=== PATIENT | male | born 1985 | race Caucasian/White ===

== ENCOUNTER 2020-06-12 13:18 | Emergency (ER) | payer OTHER ==
[~2020-06-12] VITALS: Ht 162.6 cm; Wt 59.0 kg
[2020-06-12 13:56] VITALS: BP 110/60
--- NOTE | 2020-06-12 13:57 | NUR ---
came to er complaits infected right index finger x 2 days
[2020-06-12] MEDS ORDERED: CEPHALEXIN500 MG ORAL (14:25)
--- NOTE | 2020-06-12 14:31 | Emergency Room Report ---
History of Present Illness General Chief Complaint: Skin Rash/Abscess Source: Patient Present Illness HPI Disclaimer: Please note that this report is being documented using DRAGON technology. This can lead to erroneous entry secondary to incorrect interpretation by the dictating instrument. HPI: 35-year-old [id number] male presents with fingertip pain and swelling. 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 He does not recall a specific injury. He does sometimes pick at the skin around the fingernails. He reports pain swelling and now discoloration around the fingernail of the right index finger over the radial side. Full range of motion of the hand otherwise. Denies numbness or tingling. Reports pulsating sensation. Has not taken any medications prior to arrival. PMH: Reviewed PSH: Thyroid surgery Allergies: Reviewed Social Hx: Reviewed Allergies: Coded Allergies: No Known Allergies (Unverified , 06/12/20) COVID-19 Screening Contact w/high risk pt: No Experienced COVID-19 symptoms?: No COVID-19 Testing performed [employer]: No Nursing Documentation-PMH Past Medical History: No Stated History Review of Systems All Other Systems: negative except mentioned in HPI Physical Exam Vital Signs Date Time Temp Pulse Resp B/P (MAP) Pulse Ox O2 Delivery O2 Flow Rate FiO2 06/12/20 13:47 97.9 72 16 110/60 (77) 98 Room Air General: Awake and alert, no acute distress HEENT: NC/AT. EOMI. Resp: Normal work of breathing Skin: Intact. Edema and erythema around the fingernail base of the right index finger with overlying pustule. No active drainage or bleeding. MSK: Normal tone and bulk. Moving all extremities. No obvious deformity. Neuro: Awake and alert. Mentating appropriately Procedures Additional Procedure Procedure Narrative Paronychial drainage Area cleaned with chlorhexidine. 11 blade inserted above the nailbed into the eponychial fold. Purulent material expressed an additional pressure applied to express additional material. Irrigated under continuous water. No blood loss. No complications. Patient was neurologically intact at the start and end of this procedure. Medical Decision Making Diagnostic Impression: Primary Impression: Paronychia ER Course 35-year-old male presents for evaluation of fingertip pain and swelling. Exam consistent with paronychia. Drained at bedside by me by inserting a 11 blade flat against the fingernail extending across the pustular region. Expressed moderate amount of pus. Irrigated under continuous water and cleaned. Patient will be started on antibiotics because he has surrounding cellulitis around the digit as well. No felon identified. Patient denies impact injury or crush injury. Do not believe he requires x-ray at this time. Tetanus updated. Stable for outpatient follow-up. Instructed to return with new or worsening symptoms. Last Vital Signs Date Time Temp Pulse Resp B/P (MAP) Pulse Ox O2 Delivery O2 Flow Rate FiO2 06/12/20 13:56 97.9 16 110/60 98 Room Air 06/12/20 13:47 72 Disposition: HOME, SELF-CARE Condition: Stable Scripts Cephalexin* (KEFLEX*) 500 Mg Capsule 500 MG ORAL EVERY 12 HOURS, #14 CAP 0 Refills Prov: Kali Smith MD 06/12/20 Referrals: [facility] Departure Forms: Return to Work Return to Work in (Days): 2 Other Restrictions: Do not immerse hand in any volatile liquids, oils or other caustic chemical Patient Instructions: Paronychia Additional Instructions: Please follow-up with your primary care doctor in the next 1 to 3 days to discuss this emergency department visit and for reevaluation. If you have any new or worsening symptoms please return to the emergency department for reevaluation. Please note that this report is being documented using DRAGON technology. This can lead to erroneous entry secondary to incorrect interpretation by the dictating instrument. Kali Smith MD Jun 12, 2020 14:31
[2020-06-12] MEDS ORDERED: Tetanus/Diptheria/Pertussis IM ONE (14:45)
[2020-06-12 15:05] VITALS: BP 110/60
--- NOTE | 2020-06-12 15:06 | NUR ---
DISCHARGED HOME WITH INSTRUCTION AND RX FOLLOW UP WITH PMD
== END 2020-06-12 15:06 | disposition home or self-care (01) ==
LOC: EMR 14:22
DX: L03.011 Cellulitis of right finger (principal); Z23 Encounter for immunization
CPT/HCPCS: 90471; 90715; 99282